=== PATIENT | male | born 1945 | race Caucasian/White ===

== ENCOUNTER 2022-01-15 13:20 | Inpatient (IN) | payer MEDICARE, BC ==
[~2022-01-15] VITALS: Ht 180.3 cm; Wt 114.2 kg
[2022-01-15] MEDS ORDERED: METF500 PO (14:40)
[2022-01-15] MEDS ORDERED: ATOR80 PO (14:41)
[2022-01-15] MEDS ORDERED: IRBE150 PO (14:41)
[2022-01-15] MEDS ORDERED: VERAPAMIL ER120 M1 PO (14:41)
[2022-01-15] MEDS ORDERED: MAGNESIUM OXID500 MG PO (14:42)
--- NOTE | 2022-01-15 17:50 | NUR ---
SHIFT NOTE MR ELLIS WAS A DIRECT ADMIT TO THE MEDICAL FLOOR AFTER URGENT CARE VISIT FOR C/O SOB. HE WAS ADMITTED ON 4L N/C. HE IS NOT ON HOME OXYGEN. (PREVIOUSLY THOUGHT HE SAID HE WAS, BUT FOUND OUT THIS WAS AN ERROR). SOB ON EXERTION. ON CONTINUOUS PULSE OXIMETER. NO CHEST PAIN. SERIAL TROPS BEING DONE. CT PE DONE. CARDIAC ECHO DONE AT THE BEDSIDE. ECG ORDERED. PIV PLACED. LASIX GIVEN WITH GOOD RESPONSE. ON CARDIAC TELEMETRY - SR WITH PVCS PER MUD TANK OPERATOR. HIS WAS PRESENT ON ADMISSION. LOWELL HOSE PLACED ON PT. PT STANDING TO USE URINAL - STEADY GAIT OBSERVED. BED LOW, CALL LIGHT IN REACH.
[2022-01-15 20:08] LABS: Magnesium, Blood 2.1 mg/dL (1.6-2.4); Potassium, Blood 3.9 mmol/L (3.5-5.5)
[2022-01-16 05:17] LABS: BASOPHILS ABSOLUTE AUTO 0.08 K/mm3 (0.00-0.23); BASOPHILS PERCENT AUTO 1 % (0-2); EOSINOPHILS ABSOLUTE AUTO 0.61 K/mm3 (0.00-0.68); EOSINOPHILS PERCENT AUTO 5 % (0-6); Hematocrit 38.9 % (37.0-53.0); Hemoglobin 12.8 g/dL (13.5-17.5); IMMATURE GRAN ABSOLUTE AUTO 0.06 K/mm3 (0.00-0.10); IMMATURE GRAN PERCENT AUTO 1 % (0-1); LYMPHOCYTES ABSOLUTE AUTO 1.88 K/mm3 (0.84-5.20); LYMPHOCYTES PERCENT AUTO 15 % (21-46); MONOCYTES ABSOLUTE AUTO 1.09 K/mm3 (0.16-1.47); MONOCYTES PERCENT AUTO 9 % (4-13); Mean Corpuscular HGB Conc 32.9 g/dL (31.5-36.5); Mean Corpuscular Volume 94 fL (80-100); NEUTROPHILS ABSOLUTE AUTO 8.77 K/mm3 (1.96-9.15); NEUTROPHILS PERCENT AUTO 70 % (41-73); Platelet Count 325 K/mm3 (150-400); RDW Coefficient Variation 13.9 % (11.7-14.2); RDW Standard Deviation 47.8 fL (35.1-46.3); Red Blood Cell Count 4.13 M/mm3 (4.30-5.90); White Blood Cell Count 12.49 K/mm3 (4.00-11.30)
[2022-01-16 05:52] LABS: International Normalized Ratio 1.09; Prothrombin Time Results 11.4 Sec (9.7-11.5)
[2022-01-16 06:02] LABS: Alanine Aminotransfer (ALT/SGP 105 U/L (12-78); Albumin, Blood 2.8 g/dL (3.4-5.0); Albumin/Globulin Ratio 0.5 (0.8-1.8); Alk Phos 75 U/L (50-136); Anion Gap 10 mmol/L (6-16); Aspartate Aminotrans (AST/SGOT 68 U/L (12-37); Bilirubin, Total 0.6 mg/dL (0.1-1.0); Blood Urea Nitrogen 21 mg/dL (8-24); Bun/Creatinine Ratio 23.6 (12.0-20.0); CO2, Blood 23 mmol/L (21-32); Calcium, Blood 9.2 mg/dL (8.5-10.1); Chloride, Blood 104 mmol/L (98-108); Creatinine, Blood 0.89 mg/dL (0.60-1.20); Globulin, Blood 5.2 g/dL (2.2-4.0); Glomerular Filtration Rate >60 (60-); Glucose, Blood 143 mg/dL (70-99); Magnesium, Blood 2.1 mg/dL (1.6-2.4); Phosphorus, Blood 4.9 mg/dL (2.5-4.9); Potassium, Blood 3.7 mmol/L (3.5-5.5); Sodium, Blood 137 mmol/L (136-145)
--- NOTE | 2022-01-16 11:25 | NUR ---
PT DROWSY, BUT CONVERSING APPROPRIATELY; DENIES PAIN POST PROCEUDRE, VSS.
--- NOTE | 2022-01-16 11:35 | NUR ---
REPORT GIVEN TO ADDI NICHOLE, ALL QUESTIONS ANSWERED.
--- NOTE | 2022-01-16 15:09 | NUR ---
RN NOTE MR ELLIS IS ORIENTATED X4. NO SOB AT REST ON 4LNC. SOB O/E. ON CONTINUOUS PULSE OX AND STAYING IN THE 90 TODAY. ON TELEMETRY SR IN THE 80S PER TELETECH MIREYA. HE GOT A TTE TODAY, WAS NPO UNTIL 1PM, THEN HAS BEEN SWALLOWING FINE. PLAN POST TTE PER CATH RN REPORT IS TO MEDICALLY MANAGE PT UNTIL TUESDAY HERE AT [facility], THEN REFER TO HOSPITAL IN [place] FOR FURTHER FOLLOW UP. HE DENIES CHEST PAIN. BED LOW, CALL LIGHT IN REACH.
--- NOTE | 2022-01-16 19:15 | NUR ---
SHIFT SUMMARY 1800 BUMEX NOT G[address]. DR HONG CALLED AND INFORMED - ORDERED TO HOLD THIS DOSE. PT ASYMPTOMATIC, SITTING EATING SUPPER. NO CHEST PAIN, NO SOB AT THE TIME. O2 SAT IN THE 90S ON CONTINUOUS PULSE OX/O2 4L NC. OTHERWISE NO CHANGES FROM PRIOR NOTE.
--- NOTE | 2022-01-17 04:35 | NUR ---
SUMMARY PT SLEPT WELL T/O THE NIGHT. NO C/O SOB, CP, OR ANY EPISODES OF LOW OXYGEN SATURATION. PT REMAINS ON 4L OF O2, SATTING >95. NO NEW ISSUES NOTED. WCTM.
[2022-01-17 05:54] LABS: BASOPHILS ABSOLUTE AUTO 0.09 K/mm3 (0.00-0.23); BASOPHILS PERCENT AUTO 1 % (0-2); EOSINOPHILS ABSOLUTE AUTO 0.64 K/mm3 (0.00-0.68); EOSINOPHILS PERCENT AUTO 5 % (0-6); Hematocrit 41.1 % (37.0-53.0); Hemoglobin 13.6 g/dL (13.5-17.5); IMMATURE GRAN ABSOLUTE AUTO 0.08 K/mm3 (0.00-0.10); IMMATURE GRAN PERCENT AUTO 1 % (0-1); LYMPHOCYTES ABSOLUTE AUTO 1.93 K/mm3 (0.84-5.20); LYMPHOCYTES PERCENT AUTO 16 % (21-46); MONOCYTES ABSOLUTE AUTO 1.08 K/mm3 (0.16-1.47); MONOCYTES PERCENT AUTO 9 % (4-13); Mean Corpuscular HGB 31.2 pg (26.0-34.0); Mean Corpuscular HGB Conc 33.1 g/dL (31.5-36.5); Mean Corpuscular Volume 94 fL (80-100); Mean Platelet Volume 10.6 fL (9.1-12.4); NEUTROPHILS ABSOLUTE AUTO 8.39 K/mm3 (1.96-9.15); NEUTROPHILS PERCENT AUTO 69 % (41-73); Platelet Count 374 K/mm3 (150-400); RDW Coefficient Variation 13.8 % (11.7-14.2); RDW Standard Deviation 47.9 fL (35.1-46.3); Red Blood Cell Count 4.36 M/mm3 (4.30-5.90); White Blood Cell Count 12.21 K/mm3 (4.00-11.30)
[2022-01-17 06:32] LABS: Alanine Aminotransfer (ALT/SGP 105 U/L (12-78); Albumin, Blood 2.8 g/dL (3.4-5.0); Albumin/Globulin Ratio 0.5 (0.8-1.8); Alk Phos 82 U/L (50-136); Anion Gap 9 mmol/L (6-16); Aspartate Aminotrans (AST/SGOT 66 U/L (12-37); Bilirubin, Total 0.7 mg/dL (0.1-1.0); Blood Urea Nitrogen 25 mg/dL (8-24); Bun/Creatinine Ratio 28.8 (12.0-20.0); CO2, Blood 24 mmol/L (21-32); Calcium, Blood 9.3 mg/dL (8.5-10.1); Chloride, Blood 103 mmol/L (98-108); Creatinine, Blood 0.87 mg/dL (0.60-1.20); Globulin, Blood 5.7 g/dL (2.2-4.0); Glomerular Filtration Rate >60 (60-); Glucose, Blood 143 mg/dL (70-99); Magnesium, Blood 2.2 mg/dL (1.6-2.4); Potassium, Blood 3.9 mmol/L (3.5-5.5); Sodium, Blood 136 mmol/L (136-145); Total Protein, Blood 8.5 g/dL (6.4-8.2)
--- NOTE | 2022-01-17 17:34 | NUR ---
SHIFT SUMMARY MR ELLIS IS OX4, UP INDEPENDENTLY IN HIS ROOM, STEADY GAIT. WASN'T ABLE TO WEAN OFF OXYGEN TODAY, SATS 90% WHEN SLEEPING ON 2L NC, ON CONTINUOUS PULSE OX. DESAT TO 87% ON ROOM AIR AFTER SHOWER. HE SAID HE FELT SOB WITH THIS, NOT SEVERE PRE-ADMIT. ON TELEMETRY, NO ALERTS TODAY FROM [employer]. NO C/O ANY PAIN. BED LOW, CALL LIGHT IN REACH.
--- NOTE | 2022-01-18 04:59 | NUR ---
SHIFT SUMMARY NO ACUTE CHANGES OVERNIGHT. PT REMAIN ON 02 OVERNIGHT AT 2L N/C SATS BETWEEN 90-94 WHILE AWAKE TALKING. PT WAS ON 3L N/C AT SLEEP, DESATS INTERM AT 88-89%. POSSIBLE CHRISTA? ADVICE PT TO FOLLOW UP WITH PRIMARY CARE FOR SLEEP STUDY/ TO DETERMINE IF NEEDING A CPAP AT NIGHT. TRIAL ON ROOM AIR, WHILE TALKING TO PT, PT DESATS TO 87-90%. PT REPORTS FEELING OUT OF BREATH WHILE TALKING. ALSO WILL ADDRESS FOR RT EVAL FOR DAY SHIFT NURSE PRIOR TO PT'S DISCHARGE FOR HOME . VSS. PT DENIES ANY CHEST PAIN, N/T. TOLERATING PO INTAKE DENIES N/V. AMBULATES INDEPENDENTLY IN ROOM. USE URINAL AT NIGHT. VOIDS ADEQUATELY. TELE ON NSR AT 89. CALL LIGHT WITHIN REACH. WILL PROVIDE REPORT TO ONCOMING NURSE.
[2022-01-18 05:55] LABS: BASOPHILS ABSOLUTE AUTO 0.07 K/mm3 (0.00-0.23); BASOPHILS PERCENT AUTO 1 % (0-2); EOSINOPHILS ABSOLUTE AUTO 0.59 K/mm3 (0.00-0.68); EOSINOPHILS PERCENT AUTO 5 % (0-6); Hematocrit 41.6 % (37.0-53.0); Hemoglobin 13.9 g/dL (13.5-17.5); IMMATURE GRAN ABSOLUTE AUTO 0.06 K/mm3 (0.00-0.10); IMMATURE GRAN PERCENT AUTO 1 % (0-1); LYMPHOCYTES ABSOLUTE AUTO 1.83 K/mm3 (0.84-5.20); LYMPHOCYTES PERCENT AUTO 15 % (21-46); MONOCYTES ABSOLUTE AUTO 1.13 K/mm3 (0.16-1.47); MONOCYTES PERCENT AUTO 9 % (4-13); Mean Corpuscular HGB 31.2 pg (26.0-34.0); Mean Corpuscular HGB Conc 33.4 g/dL (31.5-36.5); Mean Corpuscular Volume 94 fL (80-100); Mean Platelet Volume 10.3 fL (9.1-12.4); NEUTROPHILS ABSOLUTE AUTO 8.96 K/mm3 (1.96-9.15); NEUTROPHILS PERCENT AUTO 71 % (41-73); Platelet Count 418 K/mm3 (150-400); RDW Coefficient Variation 13.9 % (11.7-14.2); RDW Standard Deviation 47.7 fL (35.1-46.3); Red Blood Cell Count 4.45 M/mm3 (4.30-5.90); White Blood Cell Count 12.64 K/mm3 (4.00-11.30)
[2022-01-18 06:19] LABS: Alanine Aminotransfer (ALT/SGP 95 U/L (12-78); Albumin, Blood 2.9 g/dL (3.4-5.0); Albumin/Globulin Ratio 0.5 (0.8-1.8); Alk Phos 79 U/L (50-136); Anion Gap 8 mmol/L (6-16); Aspartate Aminotrans (AST/SGOT 60 U/L (12-37); Bilirubin, Total 0.6 mg/dL (0.1-1.0); Blood Urea Nitrogen 30 mg/dL (8-24); Bun/Creatinine Ratio 34.5 (12.0-20.0); CO2, Blood 25 mmol/L (21-32); Calcium, Blood 9.2 mg/dL (8.5-10.1); Chloride, Blood 102 mmol/L (98-108); Creatinine, Blood 0.87 mg/dL (0.60-1.20); Globulin, Blood 5.8 g/dL (2.2-4.0); Glomerular Filtration Rate >60 (60-); Glucose, Blood 148 mg/dL (70-99); Magnesium, Blood 2.5 mg/dL (1.6-2.4); Phosphorus, Blood 4.1 mg/dL (2.5-4.9); Sodium, Blood 135 mmol/L (136-145); Total Protein, Blood 8.7 g/dL (6.4-8.2)
[2022-01-18] MEDS ORDERED: ATOR40TA PO (13:12)
[2022-01-18] MEDS ORDERED: ELIQUIS5 M2 PO (13:12)
[2022-01-18] MEDS ORDERED: ASPI81CH PO (13:13)
[2022-01-18] MEDS ORDERED: AZIT250 PO (13:20)
[2022-01-18] MEDS ORDERED: SPIR50 PO (13:21)
[2022-01-18] MEDS ORDERED: TORSE20 PO (13:22)
--- NOTE | 2022-01-18 15:48 | NUR ---
DISCHARGE NOTE- PT WAS GIVE VERBAL AND WRITTEN DISCHARGE INSTRUCTIONS AND ACKNOWLEDGED UNDERSTANDING OF THEM. PT SPOUSE PRESENT FOR DISCHARGE TEACHING, PHARMACY CAME TO SPEAK TO THEM ABOUT THE NEW MEDICATIONS. PT AND SPOUSE HAD NO FURTHER QUESTIONS AT THE TIME OF DISCHARGE AND PT WAS ESCORTED OUT BY THE CONSOLE ASSEMBLER VIA WC. NO S&S OF DISTRESS NOTED AT THE TIME OF DISCHARGE. PORTABLE O2 DELIVERED BY [facility] PRIOR TO PT DISCHARGE. IV AND TELE DC'D PRIOR TO DISCHARGE.
== END 2022-01-18 15:43 | disposition home or self-care (01) | DRG 291 ==
LOC: MEDS 13:20
PROVIDERS: Internal Medicine Cardiovascular Disease; ADMIT Family Medicine
DX: I50.9 Heart failure, unspecified (principal); J18.9 Pneumonia, unspecified organism; I48.92 Unspecified atrial flutter; I35.0 Nonrheumatic aortic (valve) stenosis; I11.0 Hypertensive heart disease with heart failure; E78.5 Hyperlipidemia, unspecified; G47.33 Obstructive sleep apnea (adult) (pediatric); E11.9 Type 2 diabetes mellitus without complications; Z88.5 Allergy status to narcotic agent; Z88.8 Allergy status to other drugs, medicaments and biological substances; Z79.84 Long term (current) use of oral hypoglycemic drugs; Z79.899 Other long term (current) drug therapy; I42.9 Cardiomyopathy, unspecified; I95.2 Hypotension due to drugs; T50.1X5A Adverse effect of loop [high-ceiling] diuretics, initial encounter; E66.01 Morbid (severe) obesity due to excess calories
CPT/HCPCS: 36415; 71260; 80053; 83735; 83880; 84100; 84132; 84484; 85025; 85610; 85730; 86850; 86900; 86901; 93005; 93010; 93306; 93312; 93325; 94760; 94761; 94762; 99152; A9270; J0696; J1650; J1940; J2250; J2310; J3010; J7030; Q9967

== ENCOUNTER → 2022-01-15 | Outpatient (CLI) | payer MEDICARE, BC ==
[~2022-01-15] MED LIST: ASPI81CH PO; ATOR40TA PO; ATOR80 PO; AZIT250 PO; ELIQUIS5 M2 PO; IRBE150 PO; MAGNESIUM OXID500 MG PO; METF500 PO; SPIR50 PO; TORSE20 PO; VERAPAMIL ER120 M1 PO
[2022-01-15 11:10] LABS: BASOPHILS ABSOLUTE AUTO 0.07 K/mm3 (0.00-0.23); BASOPHILS PERCENT AUTO 1 % (0-2); EOSINOPHILS ABSOLUTE AUTO 0.53 K/mm3 (0.00-0.68); EOSINOPHILS PERCENT AUTO 4 % (0-6); Hematocrit 39.8 % (37.0-53.0); Hemoglobin 13.6 g/dL (13.5-17.5); IMMATURE GRAN ABSOLUTE AUTO 0.06 K/mm3 (0.00-0.10); IMMATURE GRAN PERCENT AUTO 1 % (0-1); LYMPHOCYTES ABSOLUTE AUTO 1.87 K/mm3 (0.84-5.20); LYMPHOCYTES PERCENT AUTO 15 % (21-46); MONOCYTES ABSOLUTE AUTO 1.21 K/mm3 (0.16-1.47); MONOCYTES PERCENT AUTO 10 % (4-13); Mean Corpuscular HGB 32.2 pg (26.0-34.0); Mean Corpuscular HGB Conc 34.2 g/dL (31.5-36.5); Mean Corpuscular Volume 94 fL (80-100); Mean Platelet Volume 10.7 fL (9.1-12.4); NEUTROPHILS ABSOLUTE AUTO 8.91 K/mm3 (1.96-9.15); NEUTROPHILS PERCENT AUTO 70 % (41-73); Platelet Count 327 K/mm3 (150-400); RDW Coefficient Variation 13.9 % (11.7-14.2); Red Blood Cell Count 4.23 M/mm3 (4.30-5.90); White Blood Cell Count 12.65 K/mm3 (4.00-11.30)
[2022-01-15 11:21] LABS: Alanine Aminotransfer (ALT/SGP 127 U/L (12-78); Albumin, Blood 2.8 g/dL (3.4-5.0); Albumin/Globulin Ratio 0.6 (0.8-1.8); Alk Phos 89 U/L (40-126); Anion Gap 12 mmol/L (6-16); Aspartate Aminotrans (AST/SGOT 82 U/L (12-37); Bilirubin, Total 0.8 mg/dL (0.1-1.0); Blood Urea Nitrogen 19 mg/dL (8-24); Bun/Creatinine Ratio 18.8 (12.0-20.0); CO2, Blood 22 mmol/L (21-32); Calcium, Blood 9.2 mg/dL (8.5-10.1); Chloride, Blood 106 mmol/L (98-108); Creatinine, Blood 1.01 mg/dL (0.60-1.20); Globulin, Blood 4.5 g/dL (2.2-4.0); Glomerular Filtration Rate >60 (60-); Glucose, Blood 135 mg/dL (70-99); Potassium, Blood 4.1 mmol/L (3.5-5.5); Sodium, Blood 140 mmol/L (136-145); Total Protein, Blood 7.3 g/dL (6.4-8.2)
== END | disposition home or self-care (01) ==
LOC: LAB 11:01 → LAB SHORT 11:01
PROVIDERS: Physician Assistant
DX: R06.09 Other forms of dyspnea (principal)
CPT/HCPCS: 80053; 83880; 84484; 85025; 85379

== ENCOUNTER → 2022-10-19 | Outpatient (CLI) | payer MEDICARE, BC ==
[~2022-10-19] MED LIST changes: +CENTRUM SILVER1 EAC2 PO; +KRILL OIL500 MG PO; +VITAMIN D325 MC3 PO; +ZYRTEC10 M4 PO
== END ==
LOC: PLD 12:15 → LAB SHORT 12:15
DX: C44.41 Basal cell carcinoma of skin of scalp and neck (principal); D22.5 Melanocytic nevi of trunk; L82.1 Other seborrheic keratosis
CPT/HCPCS: 88305

== ENCOUNTER 2023-03-01 11:59 | Day surgery (SDC) | payer MEDICARE, BC ==
[~2023-03-01] VITALS: Ht 177.8 cm; Wt 114.7 kg
[2023-03-01 14:17] VITALS: BP 142/91
== END 2023-03-01 14:19 | disposition home or self-care (01) ==
LOC: ORSCSDS 11:59
PROVIDERS: Ophthalmology
PROC: 08DJ3ZZ Extraction of Right Lens, Percutaneous Approach (ICD-10-PCS; principal; 2023-03-01 13:30)
DX: E11.36 Type 2 diabetes mellitus with diabetic cataract (principal); H25.13 Age-related nuclear cataract, bilateral; I10 Essential (primary) hypertension; I48.91 Unspecified atrial fibrillation; E78.5 Hyperlipidemia, unspecified; G47.33 Obstructive sleep apnea (adult) (pediatric); E66.9 Obesity, unspecified; Z68.30 Body mass index [BMI] 30.0-30.9, adult; Z87.891 Personal history of nicotine dependence; Z79.84 Long term (current) use of oral hypoglycemic drugs; Z79.01 Long term (current) use of anticoagulants; Z79.82 Long term (current) use of aspirin; Z79.899 Other long term (current) drug therapy
CPT/HCPCS: 82947; J2250; J3010; J3301; J7040; V2632

== ENCOUNTER 2023-06-09 21:08 | Emergency (ER) | payer MEDICARE, BC ==
[~2023-06-09] VITALS: Ht 180.3 cm; Wt 113.4 kg
[2023-06-09 23:00] VITALS: BP 124/46
== END 2023-06-09 23:27 | disposition home or self-care (01) ==
LOC: ER 21:08
DX: F10.129 Alcohol abuse with intoxication, unspecified (principal); S12.300A Unspecified displaced fracture of fourth cervical vertebra, initial encounter for closed fracture; S41.112A Laceration without foreign body of left upper arm, initial encounter; S01.81XA Laceration without foreign body of other part of head, initial encounter; I10 Essential (primary) hypertension; E11.9 Type 2 diabetes mellitus without complications; E78.5 Hyperlipidemia, unspecified; Z88.8 Allergy status to other drugs, medicaments and biological substances; Z88.5 Allergy status to narcotic agent; Z79.82 Long term (current) use of aspirin; Z79.01 Long term (current) use of anticoagulants; Z79.84 Long term (current) use of oral hypoglycemic drugs; Z79.899 Other long term (current) drug therapy; W10.9XXA Fall (on) (from) unspecified stairs and steps, initial encounter; Y92.009 Unspecified place in unspecified non-institutional (private) residence as the place of occurrence of the external cause; Z23 Encounter for immunization
CPT/HCPCS: 70450; 72125; 90471; 90715; 93005; 93010; 99284-25

== ENCOUNTER 2025-06-24 15:47 | Emergency (ER) | payer MEDICARE, BC ==
[~2025-06-24] VITALS: Ht 182.9 cm; Wt 108.9 kg
[~2025-06-24 15:47] MED LIST changes: +IRBE75 PO
[2025-06-24 16:20] LABS: Calcium, Ionized (POC) 1.15 mmol/L (1.10-1.46); Chloride (POC) 107 mmol/L (98-108); Creatinine (POC) 1.4 mg/dL (0.8-1.3); Glucose (ISTAT POC) 237 mg/dL (70-99); Hematocrit (POC) 39.0 % (41.0-53.0); Hemoglobin (POC) 13.3 g/dL (13.5-17.5); Potassium (POC) 5.7 mmol/L (3.5-5.5); Sodium (POC) 136 mmol/L (135-148); Total CO2 (POC) 17 mmol/L (21-32)
--- NOTE | 2025-06-24 16:47 | NUR ---
Upon receiving a request for spiritual care, I visited the patient. Minutes before my arrival the patient . The patient's spouse of 40 yrs, Beckie, is bedside and grieving appropriately. I conduct a life review, explore patient's and Beckie's beliefs (Yazidism) and provided therapeutic listening, grief support and prayer. I also gathered the home info ([facility] in [place]). Beckie responded well and showed signs of being comforted. Beckie's friends greet her in the lobby and walk her to her car.
[2025-06-24] MEDS ORDERED: Sodium Bicarb 8.4% 50 mEq Syringe IV ONE (19:20)
== END 2025-06-24 17:47 ==
LOC: ER 15:47
PROVIDERS: Emergency Medicine
DX: I46.9 Cardiac arrest, cause unspecified (principal); E78.5 Hyperlipidemia, unspecified; E11.9 Type 2 diabetes mellitus without complications; I10 Essential (primary) hypertension; Z79.82 Long term (current) use of aspirin; Z79.84 Long term (current) use of oral hypoglycemic drugs; Z79.899 Other long term (current) drug therapy; Z88.5 Allergy status to narcotic agent; Z88.8 Allergy status to other drugs, medicaments and biological substances
CPT/HCPCS: 80047; 82947; 85014; 92950; 93005; 93010; 99285-25